=== PATIENT | male | born 1980 | race Caucasian/White ===

== ENCOUNTER 2017-10-11 20:18 | Emergency (ER) | payer SELFPAY ==
[~2017-10-11] VITALS: Ht 195.6 cm; Wt 86.2 kg
== END 2017-10-11 21:30 | disposition home or self-care (01) ==
LOC: ED 20:18
DX: K43.9 Ventral hernia without obstruction or gangrene (principal); F17.200 Nicotine dependence, unspecified, uncomplicated; Z88.0 Allergy status to penicillin
CPT/HCPCS: 99281